=== PATIENT | female | born 1995 | race Two or more races ===

== ENCOUNTER 2016-12-06 13:38 | Day surgery (SDC) | payer BC ==
[~2016-12-06] VITALS: Ht 165.1 cm; Wt 82.5 kg
[2016-12-06 14:15] VITALS: Ht 165.1 cm; Wt 82.5 kg
[2016-12-06] MEDS ORDERED: NO MEDS. (14:20)
[2016-12-06 14:25] VITALS: BP 106/58; PULSE 74; RESP 22
[2016-12-06] MEDS ORDERED: FENTAnyl 50 MCG/ML VIAL ONE (15:15)
[2016-12-06] MEDS ORDERED: MEPERIDINE 50 MG INJ ONE (15:17)
[2016-12-06] MEDS ORDERED: MIDAZOLAM 1 MG/ML 2 ML INJ ONE (15:17)
--- NOTE | 2016-12-06 15:19 | OPPN ---
Date/Time of Note Date/Time of Note DATE: 12/06/16 TIME: 15:16 Colonoscopy terminal ileoscopy normal recommend if diarrhea continues small bowel series And including EGD biopsy to rule out celiac sprue or other conditions Follow-up in 4 weeks Operative Report Preoperative Diagnosis Diarrhea abdominal Postoperative Diagnosis Normal terminal ileoscopy normal colonoscopy Operation/Procedure Performed Colonoscopy and ileoscopy of the terminal ileum Surgeon see signature line security assistant none Anesthesia: moderate sedation (Versed 3 mg/fentanyl 50 mcg/Demerol 25mg total duration of moderate sedation 18 minute) Estimated blood loss: none Transfusion Required none Specimen None Grafts/Implants none Complications none ARTHUR KAUR MD Dec 06, 2016 15:19
[2016-12-06 15:34] VITALS: BP 105/65; RESP 18
--- NOTE | 2016-12-06 16:30 | GILP ---
DATE OF PROCEDURE: 12/06/2016 PREOPERATIVE DIAGNOSES: 1. Diarrhea. 2. Abdominal pain. PROCEDURE PERFORMED: 1. Colonoscopy. 2. Ileoscopy. POSTOP DIAGNOSES: 1. Normal terminal ilium. 2. Normal colon. 3. No evidence of any colitis or ulceration. DESCRIPTION OF PROCEDURE: The patient was put in left lateral decubitus. After obtaining informed consent, she was sedated with 3 mg of IV Versed, 50 mcg of fentanyl and 25 mg of Demerol. Then I advanced an Olympus video colonoscope all the way to terminal ilium. The terminal ilium is normal with line ulcers. Cecum and ascending colon, normal. Transverse colon, descending colon normal. Sigmoid colon, mild fixation but normal. Rectum including retroflexion is normal. Postoperatively the patient had no complications. If her symptoms continue with diarrhea, consider small bowel series. May recommend upper endoscopy and biopsy to look for celiac sprue, etc. Meanwhile the patient will be followed in my office in 4 weeks. Dictated By: Ranjana Fontanez MD /jatinder/hever /Document#: [id number]
== END 2016-12-06 16:16 | disposition home or self-care (01) ==
LOC: GIL 13:38
PROVIDERS: ATTEND Internal Medicine
DX: R19.7 Diarrhea, unspecified (principal); R10.9 Unspecified abdominal pain
CPT/HCPCS: 45378; 84703; J2175; J2250; J3010; Z7610